=== PATIENT | male | born 1970 | race Hispanic/Latino ===

== ENCOUNTER 2021-09-23 17:17 | Inpatient (IN) | payer SELFPAY ==
[2021-09-23 21:19] LABS: Absolute Lymphocytes (CBC) 1.6 K/uL (0.7-4.9); Hematocrit 45.4 % (39.6-49.0); Lymphocytes % 16.1 % (15.3-44.8); MPV 8.7 fL (7.6-11.3); RBC Red Blood Cell Count 5.56 M/uL (4.33-5.43)
--- NOTE | 2021-09-23 21:25 | RAD REPORT ---
EXAM DESCRIPTION: RAD - Chest Single View - 09/23/2021 9:12 pm CLINICAL HISTORY: SOB Chest pain. COMPARISON: No comparisons FINDINGS: Portable technique limits examination quality. Mild interstitial pulmonary edema. The heart is mildly prominent size. No displaced fractures. IMPRESSION: Mild CHF.
[2021-09-23 21:33] LABS: Protime INR 1.12
[2021-09-23 21:35] LABS: Potassium 4.1 mmol/L (3.5-5.1)
[2021-09-23 21:56] LABS: Albumin 3.7 g/dL (3.4-5.0); Bilirubin Direct 0.2 mg/dL (0-0.2); Bilirubin Total 0.8 mg/dL (0.2-1.0); Magnesium 2.1 mg/dL (1.8-2.4); Protein, Total 7.6 g/dL (6.4-8.2)
[2021-09-23 22:14] LABS: Troponin High Sensitivity 288.2 pg/mL (<58.9)
[2021-09-23 22:52] LABS: Urine Blood Negative (Negative); Urine Glucose Negative (Negative); Urine Protein 3+ (Negative); Urine Specific Gravity >=1.030 (1.005-1.030); Urine pH 5.5 (5.0-7.0)
--- NOTE | 2021-09-23 23:00 | ER ---
Nurse's Notes [facility] Name: Kevin Devine Age: 51 yrs Sex: Male : 1970 Arrival Date: 09/23/2021 Time: 17:20 Bed 14 Private MD: COLUMBA WATSON Diagnosis: Unspecified combined systolic (congestive) and diastolic (congestive) heart failure Presentation: 09/23 18:28 Chief complaint: Patient states: Last 4 days woke up with labored breathing and trouble ww going back to sleep. Today the labored breathing has gotten worse with an increase in fatigue. Tried to mow his yard today and his legs felt weak and heavy. Coronavirus screen: Client denies travel out of the [place] in the last 14 days. Ebola Screen: Patient denies travel to an Ebola-affected area in the 21 days before illness onset. Initial Sepsis Screen: Does the patient meet any 2 criteria? No. Patient's initial sepsis screen is negative. Does the patient have a suspected source of infection? No. Patient's initial sepsis screen is negative. Risk Assessment: Do you want to hurt yourself or someone else? Patient reports no desire to harm self or others. Onset of symptoms is unknown. 18:28 Method Of Arrival: Ambulatory ww 18:28 Acuity: SUNDAY 3 ww Triage Assessment: 18:30 General: Appears comfortable, Behavior is cooperative. Pain: Denies pain. Neuro: Level ww of Consciousness is awake, alert, obeys commands, Oriented to person, place, time, situation. Respiratory: Airway is patent Respiratory effort is even, unlabored, Respiratory pattern is regular, symmetrical. Historical: - Allergies: 18:30 No Known Allergies; ww - Home Meds: 18:30 metformin 500 mg/5 mL Oral soln [Active]; Lisinopril Oral [Active]; ww - PMHx: 18:30 Diabetes mellitus; Hypertensive disorder; ww - Immunization history:: Adult Immunizations up to date. - Social history:: Smoking status: Patient denies any tobacco usage or history of. Screenin:55 Abuse screen: Denies threats or abuse. Nutritional screening: No deficits noted. bb Tuberculosis screening: No symptoms or risk factors identified. Fall Risk None identified. Assessment: 20:55 General: Appears in no apparent distress. Behavior is calm, cooperative. Pain: Denies bb pain. Neuro: Level of Consciousness is awake, alert, obeys commands, Oriented to person, place, time, situation. Cardiovascular: Capillary refill < 3 seconds Patient's skin is warm and dry. Rhythm is sinus bradycardia. Respiratory: Airway is patent Respiratory effort is even, unlabored, Respiratory pattern is regular. GI: No signs and/or symptoms were reported involving the gastrointestinal system. Derm: Skin is pink, warm \T\ dry. Musculoskeletal: Circulation, motion, and sensation intact. 23:16 Reassessment: Patient is alert, oriented x 3, equal unlabored respirations, skin bb warm/dry/pink. pt to CT scan via wheelchair accompanied by ergonomics technician. Vital Signs: 18:28 BP 140 / 115; Pulse 77; Resp 20; Temp 97.3; Pulse Ox 99% ; Weight 99.79 kg; Height 5 ww ft. 10 in. (177.80 cm); 21:15 BP 145 / 96; Pulse 85; Resp 16 S; Pulse Ox 95% on R/A; bb 18:28 Body Mass Index 31.57 (99.79 kg, 177.80 cm) ww ED Course: 17:20 Patient arrived in ED. am2 17:21 COLUMBA WATSON is Private Physician. am2 18:30 Triage completed. ww 18:30 Arm band placed on. ww 19:44 Alphonso Gage MD is Attending Physician. [facility] 20:40 Iliana Galan RN is Primary Nurse. bb 20:45 Initial lab(s) drawn, by md, sent to lab. Inserted saline lock: 20 gauge in right bb antecubital area, using aseptic technique. Blood collected. 20:55 Patient has correct armband on for positive identification. Call light in reach. Side bb rails up X 1. Client placed on continuous cardiac and pulse oximetry monitoring. NIBP monitoring applied. 21:14 XRAY Chest (1 view) In Process Unspecified. EDMS 21:43 Notified ED physician of a critical lab result(s). DDimer of [id number] Dr Gage notified. bb 22:59 Jf Wood MD is Hospitalizing Provider. [facility] 23:24 CT Chest For PE Angio In Process Unspecified. EDMS 09/24 07:27 Primary Nurse role handed off by Iliana Galan, [place] bd Administered Medications: 09/23 23:06 Drug: Lasix (furosemide) 20 mg Route: IVP; Site: right antecubital; 23:06 Drug: Aspirin Chewable Tablet 324 mg Route: PO; 09/24 01:08 Drug: Lovenox (enoxaparin) 1 mg/kg Route: Sub-Q; Site: abdomen; ke1 Outcome: 09/23 23:00 Decision to Hospitalize by Provider. [facility] 09/24 18:20 Admitted to Tele accompanied by tech, via wheelchair, room 222, Report called to [facility] 18:24 Patient left the ED. [facility] 18:24 Condition: stable [facility] 18:24 Instructed on the need for admit. Signatures: Dispatcher [employer] EDMS Kayy Johnson Brenda, Zulay Baptiste RN, Maurice, MD MD [facility] RN RN 6 Ting Rico RN RN ww Ebrottie, Kouassi, RN RN 1
--- NOTE | 2021-09-23 23:00 | EDPHYS ---
Physician Documentation [facility] Name: Kevin Devine Age: 51 yrs Sex: Male : 1970 Arrival Date: 09/23/2021 Time: 17:20 Bed 14 Private MD: COLUMBA WATSON ED Physician Alphonso Gage HPI: 09/23 20:40 This 51 yrs old Male presents to ER via Ambulatory with complaints of Blood mh7 Pressure Problem, General Weakness. 20:40 The patient has shortness of breath with light activity, that woke him/her from sleep. mh7 Onset: The symptoms/episode began/occurred 4 day(s) ago. Duration: The symptoms are intermittent, with no pattern. The patient's shortness of breath is aggravated by exertion, light activity, supine position, is alleviated by rest. Associated signs and symptoms: Pertinent negatives: chest pain, non-productive cough, productive cough, diaphoresis, dizziness, fever, hemoptysis, loss of consciousness, nausea, numbness in extremities, visual changes, vomiting. Severity of symptoms: At their worst the symptoms were moderate 1 day(s) ago, in the emergency department the symptoms have improved moderately. Historical: - Allergies: 18:30 No Known Allergies; ww - Home Meds: 18:30 metformin 500 mg/5 mL Oral soln [Active]; Lisinopril Oral [Active]; ww - PMHx: 18:30 Diabetes mellitus; Hypertensive disorder; ww - Immunization history:: Adult Immunizations up to date. - Social history:: Smoking status: Patient denies any tobacco usage or history of. ROS: 20:40 Constitutional: Negative for fever, chills, and weight loss, Eyes: Negative for injury, mh7 pain, redness, and discharge, ENT: Negative for injury, pain, and discharge, Neck: Negative for injury, pain, and swelling, Cardiovascular: Negative for chest pain, palpitations, and edema, Abdomen/GI: Negative for abdominal pain, nausea, vomiting, diarrhea, and constipation, Back: Negative for injury and pain, : Negative for injury, bleeding, discharge, and swelling, MS/Extremity: Negative for injury and deformity, Skin: Negative for injury, rash, and discoloration, Psych: Negative for depression, anxiety, suicide ideation, homicidal ideation, and hallucinations, Allergy/Immunology: Negative for hives, rash, and allergies, Endocrine: Negative for neck swelling, polydipsia, polyuria, polyphagia, and marked weight changes, Hematologic/Lymphatic: Negative for swollen nodes, abnormal bleeding, and unusual bruising. Exam: 20:40 Constitutional: This is a well developed, well nourished patient who is awake, alert, mh7 and in no acute distress. Head/Face: Normocephalic, atraumatic. Eyes: Pupils equal round and reactive to light, extra-ocular motions intact. Lids and lashes normal. Conjunctiva and sclera are non-icteric and not injected. Cornea within normal limits. Periorbital areas with no swelling, redness, or edema. Neck: Trachea midline, no thyromegaly or masses palpated, and no cervical lymphadenopathy. Supple, full range of motion without nuchal rigidity, or vertebral point tenderness. No Meningismus. Chest/axilla: Normal chest wall appearance and motion. Nontender with no deformity. No lesions are appreciated. Cardiovascular: Regular rate and rhythm with a normal S1 and S2. No gallops, murmurs, or rubs. Normal PMI, no JVD. No pulse deficits. 20:40 Abdomen/GI: Soft, non-tender, with normal bowel sounds. No distension or tympany. No guarding or rebound. No evidence of tenderness throughout. Back: No spinal tenderness. No costovertebral tenderness. Full range of motion. Skin: Warm, dry with normal turgor. Normal color with no rashes, no lesions, and no evidence of cellulitis. MS/ Extremity: Pulses equal, no cyanosis. Neurovascular intact. Full, normal range of motion. Neuro: Awake and alert, GCS 15, oriented to person, place, time, and situation. Cranial nerves II-XII grossly intact. Motor strength 5/5 in all extremities. Sensory grossly intact. Cerebellar exam normal. Normal gait. Psych: Awake, alert, with orientation to person, place and time. Behavior, mood, and affect are within normal limits. 20:40 Respiratory: the patient does not display signs of respiratory distress, Respirations: normal, Breath sounds: rhonchi, that are mild, are scattered, Respiratory rate: 16 Vital Signs: 18:28 BP 140 / 115; Pulse 77; Resp 20; Temp 97.3; Pulse Ox 99% ; Weight 99.79 kg; Height 5 ww ft. 10 in. (177.80 cm); 21:15 BP 145 / 96; Pulse 85; Resp 16 S; Pulse Ox 95% on R/A; bb 18:28 Body Mass Index 31.57 (99.79 kg, 177.80 cm) ww MDM: 22:58 Differential diagnosis: Anemia Anxiety Reaction asthma, Bronchitis CHF exacerbation, 7 Chronic Obstructive Pulmonary Disease Myocardial Infarction pneumonia, Pneumothorax Psychogenic pulmonary edema, reactive airway disease. Data reviewed: vital signs, nurses notes, lab test result(s), cardiac enzymes, CBC, electrolytes, EKG, radiologic studies, plain films. Data interpreted: Pulse oximetry: on room air is 95 %. Interpretation: normal. Counseling: I had a detailed discussion with the patient and/or guardian regarding: the historical points, exam findings, and any diagnostic results supporting the discharge/admit diagnosis, the presence of at least one elevated blood pressure reading (>120/80) during this emergency department visit, lab results, radiology results, the need for further work-up and treatment in the hospital. Response to treatment: the patient's symptoms have mildly improved after treatment. 23:00 Patient medically screened. [facility] 09/23 20:35 Order name: Basic Metabolic Panel; Complete Time: 22:18 [facility] 09/23 20:35 Order name: CBC with Diff; Complete Time: 22:00 [facility] 09/23 20:35 Order name: LFT's; Complete Time: 22:18 [facility] 09/23 20:35 Order name: Magnesium; Complete Time: 22:18 [facility] 09/23 20:35 Order name: NT PRO-BNP; Complete Time: 22:18 [facility] 09/23 20:35 Order name: PT-INR; Complete Time: 22:00 [facility] 09/23 20:35 Order name: Troponin HS; Complete Time: 22:18 [facility] 09/23 20:36 Order name: COVID-19 SARS RT PCR (Document "Date of Onset" if Symptomatic); Complete [facility] Time: 22:53 09/23 20:36 Order name: Influenza Screen (a \\T\\ B); Complete Time: 22:18 [facility] 09/23 21:12 Order name: D-Dimer; Complete Time: 22:00 EDNE 09/23 22:52 Order name: Urine Dipstick-Ancillary; Complete Time: 22:58 EDMS 09/24 00:48 Order name: CKMB Creatine Kinase MB EDMS 09/24 00:48 Order name: Creatine Phosphokinase EDMS 09/24 00:48 Order name: Urinalysis EDMS 09/24 00:48 Order name: Basic Metabolic Panel EDMS 09/24 00:48 Order name: Basic Metabolic Panel EDMS 09/24 00:48 Order name: Basic Metabolic Panel EDMS 09/24 00:48 Order name: CBC with Automated Diff EDMS 09/24 00:48 Order name: CBC with Automated Diff EDMS 09/24 00:48 Order name: CBC with Automated Diff EDMS 09/24 00:48 Order name: Lipid Profile EDMS 09/24 00:48 Order name: Lipid Profile EDMS 09/24 00:48 Order name: Magnesium EDMS 09/24 00:48 Order name: Magnesium EDMS 09/24 00:48 Order name: Phosphorus EDMS 09/24 00:48 Order name: Phosphorus EDMS 09/24 00:48 Order name: Thyroid Stimulating Hormone EDMS 09/24 00:48 Order name: Thyroid Stimulating Hormone EDMS 09/24 00:48 Order name: Troponin High Sensitivity EDMS 09/23 20:35 Order name: XRAY Chest (1 view); Complete Time: 22:00 [facility] 09/23 20:35 Order name: EKG; Complete Time: 20:36 [facility] 09/23 20:35 Order name: Cardiac monitoring; Complete Time: 21:28 [facility] 09/23 20:35 Order name: EKG - Nurse/Tech; Complete Time: 21:32 [facility] 09/23 20:35 Order name: IV Saline Lock; Complete Time: 21:28 [facility] 09/23 20:35 Order name: Labs collected and sent; Complete Time: 21:28 [facility] 09/23 20:35 Order name: O2 Per Protocol; Complete Time: 21:28 [facility] 09/23 20:35 Order name: O2 Sat Monitoring; Complete Time: 21:28 [facility] 09/23 20:35 Order name: Urine Dipstick-Ancillary (obtain specimen); Complete Time: 22:52 [facility] 09/23 22:32 Order name: CT Chest For PE Angio [facility] 09/24 00:48 Order name: Heart Healthy EDMS 09/24 00:48 Order name: Echo with Doppler EDMS 09/24 00:48 Order name: Troponin High Sensitivity EDMS 09/24 00:48 Order name: Troponin High Sensitivity EDMS 09/24 05:38 Order name: LDL, Direct EDMS 09/24 07:43 Order name: Glucose, Ancillary Testing EDMS 09/24 12:22 Order name: Glucose, Ancillary Testing EDMS 09/24 17:21 Order name: Glucose, Ancillary Testing EDMS Administered Medications: 23:06 Drug: Lasix (furosemide) 20 mg Route: IVP; Site: right antecubital; 23:06 Drug: Aspirin Chewable Tablet 324 mg Route: PO; bb 09/24 01:08 Drug: Lovenox (enoxaparin) 1 mg/kg Route: Sub-Q; Site: abdomen; [facility] Disposition Summary: 09/23/21 23:00 Hospitalization Ordered Hospitalization Status: Inpatient Admission [facility] Provider: Jf Wood Condition: Stable [facility] Problem: new [facility] Symptoms: have improved [facility] Bed/Room Type: Standard [facility] Location: Telemetry/MedSurg (Inpatient)(09/24/21 16:57) Room Assignment: 222(09/24/21 16:57) Diagnosis - Unspecified combined systolic (congestive) and diastolic (congestive) heart failure [facility] Forms: - Medication Reconciliation Form [facility] - SBAR form [facility] Signatures: Dispatcher [employer] Nava Ricketts RN RN dw Ballard, Brenda, RN RN bb Garcia, Cindy, RN RN cg Holmes, Maurice, MD MD mh7 Wood, Whitney, RN RN ww Ebrottie, Kouassi, RN RN ke1 Cheyanne Dai PA PA sb3 Corrections: (The following items were deleted from the chart) 09/23 21:12 20:38 D-DIMER+COAG.LAB.BRZ ordered. EDNE EDNE 09/24 00:16 09/23 23:00 Telemetry/MedSurg (Inpatient) [facility] cg 09/24 00:16 09/23 23:00 [facility] cg 09/24 16:57 00:16 [facility] ER HOLD cg dw 16:57 00:16 ERHOLD- cg dw
[2021-09-23] MEDS ORDERED: ASPIRIN 81 MG CHEWABLE TABLET ONE (23:11)
[2021-09-23] MEDS ORDERED: FUROSEMIDE 20 MG/ 2ML VIAL ONE (23:11)
[2021-09-24] MEDS ORDERED: ACETAMINOPHEN 500 MG TAB PO PRN (00:45)
[2021-09-24] MEDS ORDERED: ONDANSETRON 4 MG/2 ML VIAL IV PRN (00:45)
--- NOTE | 2021-09-24 01:05 | P.HP ---
Certification for Inpatient Patient admitted to: Inpatient With expected LOS: <2 Midnights Patient will require the following post-hospital care: None Practitioner: I am a practitioner with admitting privileges, knowledge of patient current condition, hospital course, and medical plan of care. Services: Services provided to patient in accordance with Admission requirements found in Title 42 Section 412.3 of the Code of Federal Regulations Patient History Date of Service: 09/24/21 Reason for admission: Acute CHF History of Present Illness: Patient is a 51-year-old male with PMH of type 2 diabetes [id number] and hypertension who presented to the ED with complaints of 4 days of worsening shortness of breath, orthopnea, and fatigue. 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 Labs in the ED significant for a BNP of 2469, troponin 288, D-dimer 771, COVID+. EKG without ST changes, CT chest angio negative for PE although did show small bilateral trace pleural effusions and mild adjacent atelectasis in the lower lobes. He was given 324 of aspirin, 20 of Lasix, and therapeutic dose Lovenox. Patient does have a family history of [place] and heart disease. He denies chest pain or covid related symptoms. States his SHOB has improved here and is worsened with exertion. Will admit patient for further evaluation and treatment. Allergies No Known Allergies Allergy (Unverified 09/24/21 00:45) Home medications list reviewed: Yes - Past Medical/Surgical History Diabetic: Yes -: Type 2 Diabetes Non-Insulin Dependent -: Hypertension Past Surgical History: Patient denies surgical history Psychosocial/ Personal History: Patient lives at home with his family. - Family History Father -: Heart disease, Hypertension - Social History Smoking Status: Never smoker Alcohol use: No CD- Drugs: No Caffeine use: Yes Place of Residence: Home Review of Systems General: Weakness Respiratory: Shortness of Breath, SOB with Excertion Cardiovascular: Orthopnea Physical Examination - Physical Exam General: Alert, In no apparent distress HEENT: Atraumatic, PERRLA, Mucous membr. moist/pink, EOMI, Sclerae nonicteric Neck: Supple, 2+ carotid pulse no bruit, No LAD, Without JVD or thyroid abnormality Respiratory: Clear to auscultation bilaterally, Normal air movement Cardiovascular: No edema, Regular rate/rhythm, Normal S1 S2 Gastrointestinal: Normal bowel sounds, No tenderness Musculoskeletal: No tenderness Integumentary: No rashes Neurological: Normal speech, Normal strength at 5/5 x4 extr, Normal tone, Normal affect - Studies Laboratory Data (last 24 hrs) 09/23/21 20:50: PT 12.3, INR 1.12 09/23/21 20:50: WBC 9.6, Hgb 14.8, Hct 45.4, Plt Count 213 09/23/21 20:50: Sodium 138, Potassium 4.1, BUN 26 H, Creatinine 1.26, Glucose 167 H, Magnesium 2.1, Total Bilirubin 0.8, AST 38 H, ALT 54, Alkaline Phosphatase 77 Microbiology Data (last 24 hrs): 09/23/21 21:19 Nasopharnyx Influenza Type A Antigen Screen - Final 09/23/21 21:19 Nasopharnyx Influenza Type B Antigen Screen - Final Assessment and Plan - Problems (Diagnosis) (1) Acute CHF Current Visit: Yes Status: Acute Qualifiers: Heart failure type: unspecified Qualified Code(s): I50.9 - Heart failure, unspecified (2) Hypertension Current Visit: Yes Status: Chronic Qualifiers: Hypertension type: primary hypertension Qualified Code(s): I10 - Essential (primary) hypertension (3) Type 2 diabetes mellitus Current Visit: Yes Status: Chronic Qualifiers: Diabetes mellitus correction insulin use: without correction use Diabetes mellitus complication status: without complication Qualified Code(s): E11.9 - Type 2 diabetes mellitus without complications (4) Elevated d-dimer Current Visit: Yes Status: Acute (5) Elevated troponin Current Visit: Yes Status: Acute (6) Orthopnea Current Visit: Yes Status: Acute - Plan -cardiology consulted. echo ordered for AM -BNP and trop elevated. Will trend trop q6hx2 and check CPK and CKMB. -Ddimer elevated. CT angio chest negative for PE. could be secondary to covid+. no acute concern for DVT -therapeutic dose lovenox given in ED. Will continue daily -lipid panel ordered for AM -aspirin and atorvastatin ordered daily -reconcile and continue home medications -monitor on telemetry Discharge Plan: Home Plan to discharge in: 48 Hours - Advance Directives Does patient have a Living Will: No Does patient have a Durable POA for Healthcare: No - Code Status/Comfort Care Code Status Assessed: Yes (Full) Critical Care: No Time Spent Managing Pts Care (In Minutes): 50
[2021-09-24] MEDS ORDERED: ENOXAPARIN 100 MG/ML SYR SQ ONE (01:06)
[2021-09-24] MEDS: ENOXAPARIN 100 MG/ML SYR SQ SCH ×2 (01:10→22:05)
[2021-09-24 01:20] VITALS: BMI 31.5
[2021-09-24 01:55] LABS: CKMB Creatine Kinase MB 3.5 ng/mL (1.0-3.6)
[2021-09-24 04:56] LABS: Absolute Lymphocytes (CBC) 2.2 K/uL (0.7-4.9); Hematocrit 38.3 % (39.6-49.0); Lymphocytes % 25.3 % (15.3-44.8); MPV 8.6 fL (7.6-11.3); RBC Red Blood Cell Count 4.77 M/uL (4.33-5.43)
[2021-09-24 05:15] LABS: BUN Blood Urea Nitrogen 31 mg/dL (7-18); Bicarbonate 29 mmol/L (21-32); Glomerular Filtration Rate 67 ml/min (=/>90); Glucose Level 254 mg/dL (74-106); HDL Cholesterol 26 mg/dL (40-60); Phosphorus 4.3 mg/dL (2.5-4.9); Potassium 3.6 mmol/L (3.5-5.1); Sodium Level 140 mmol/L (136-145)
[2021-09-24 05:25] LABS: Troponin High Sensitivity 232.3 pg/mL (<58.9)
[2021-09-24 05:37] LABS: LDL, Direct 88 mg/dL (100-129)
[2021-09-24] MEDS: INSULIN -REGULAR HUMAN 50 UNIT/0.5 ML ML SQ SCH ×4 (07:30→22:05)
[2021-09-24] MEDS: ASPIRIN EC 81 MG TAB PO SCH (09:00)
[2021-09-24] MEDS ORDERED: ASPIRIN 81 MG CHEWABLE TABLET ONE (09:31)
[2021-09-24] MEDS ORDERED: INSULIN -REGULAR HUMAN 50 UNIT/0.5 ML ML ONE (12:19)
--- NOTE | 2021-09-24 12:42 | RAD REPORT ---
EXAM DESCRIPTION: CT - Chest For Pe Angio - 09/24/2021 6:20 am CLINICAL HISTORY: Shortness of breath. COMPARISON: None. TECHNIQUE: CTA of the chest was performed following intravenous administration of iodinated contrast . Axial soft tissue and lung window, and coronal and sagittal soft tissue window reconstructions were created and sent to PACS. 3D postprocessing was performed on an independent workstation, with images sent to PACS for subsequen t review. This exam was performed according to our departmental dose-optimization program, which includes autom ated exposure control, adjustment of the mA and/or kV according to patient size and/or use of iterati ve reconstruction technique. FINDINGS: Vascular: The pulmonary arteries are well-opacified to the segmental level. No CT evidence of acute pulmonary thromboembolism. No evidence of aortic aneurysm. Trace reflux of contrast into th e hepatic veins. Lungs and pleura: No pulmonary consolidation. Small right-sided and trace left-sided pleural effusion s. Mild adjacent atelectasis in the lower lobes. Slightly nodular appearance along the right inferior pleura is favored related to pleural folds rather than nodules, measuring up to 1.7 cm on axial seri es 402 image 117. No pneumothorax. Mild diffuse bronchial wall thickening. Mediastinum and neck: Mild mediastinal lymphadenopathy. Mildly enlarged left thyroid lobe, containing a 1.9 cm nodule. Cardiac: Mild cardiomegaly. No pericardial effusion. Abdomen: No significant upper abdominal abnormality identified. Musculoskeletal: No concerning osseous abnormality. IMPRESSION: 1. No CTA evidence of acute pulmonary thromboembolism. 2. Small right-sided and trace left-sided pleural effusions. Mild adjacent atelectasis in the lower lobes. 3. Mild diffuse bronchial wall thickening. No pulmonary consolidation identified. 4. Slightly nodular appearance along the right inferior pleura is favored related to pleural folds rather than nodules. However, consider a non-contrast Chest CT at 3 months according to Fleischner So ciety guidelines. 5. Mild mediastinal lymphadenopathy. 6. Left thyroid lobe 1.9 cm nodule. Recommend correlation with nonemergent thyroid ultrasound accor ding to [place] [employer] guidelines. Electronically signed by: Leela Parker MD 09/23/2021 11:53 PM CDT Due to temporary technical issues with the PACS/Fluency reporting system, reports are being signed by the in house radiologist without review as a courtesy to ensure prompt reporting. The interpreting r adiologist is fully responsible for the content of the report.
[2021-09-24] MEDS ORDERED: ATORVASTATIN 40 MG TAB PO SCH (21:00)
[2021-09-25 05:44] LABS: Absolute Lymphocytes (CBC) 2.2 K/uL (0.7-4.9); Hematocrit 41.9 % (39.6-49.0); Lymphocytes % 27.4 % (15.3-44.8); MPV 8.5 fL (7.6-11.3); RBC Red Blood Cell Count 5.12 M/uL (4.33-5.43)
[2021-09-25 05:58] LABS: Potassium 3.6 mmol/L (3.5-5.1)
[2021-09-25] MEDS: INSULIN -REGULAR HUMAN 50 UNIT/0.5 ML ML SQ SCH ×2 (07:30→13:03)
--- NOTE | 2021-09-25 07:42 | EKG ---
Test Date: 2021-09-23 Test Time: 23:18:12 Plan Examiner: CAITLIN MEASUREMENT RESULTS: Intervals: Rate: 84 OH: 180 QRSD: 124 QT: 428 QTc: 505 [place]: P: 51 OH: 180 QRS: 97 T: -35 INTERPRETIVE STATEMENTS: Sinus rhythm with frequent premature ventricular complexes Rightward axis Cannot rule out Inferior infarct, age undetermined Possible Anterior infarct, age undetermined Abnormal ECG Compared to ECG 09/23/2021 21:23:53 Right-axis deviation now present Myocardial infarct finding still present Electronically Signed On 09-25-21 07:37:31 CDT by Rupesh Cheng
--- NOTE | 2021-09-25 07:42 | EKG ---
Test Date: 2021-09-23 Test Time: 21:23:53 Urology Physician Assistant: JESSICA MEASUREMENT RESULTS: Intervals: Rate: 77 NC: 176 QRSD: 122 QT: 446 QTc: 504 [place]: P: 47 NC: 176 QRS: 74 T: 60 INTERPRETIVE STATEMENTS: Sinus rhythm with frequent premature ventricular complexes in a pattern of bigeminy Possible Left atrial enlargement Possible Inferior infarct, age undetermined Anterior infarct, age undetermined Abnormal ECG No previous ECG available for comparison Electronically Signed On 09-25-21 07:37:35 CDT by Rupesh Cheng
--- NOTE | 2021-09-25 08:34 | ECHO ---
HEIGHT: 5 ft 10 in WEIGHT: 219 lb 15.989 oz DATE OF STUDY: 09/24/[address]: Cheyanne Dai 2-DIMENSIONAL: YES M.MODE: YES DOPPLER: YES COLOR FLOW: YES TDS: NO PORTABLE: YES DEFINITY: NO BUBBLE STUDY: NO DIAGNOSIS: CONGESTIVE HEART FAILURE CARDIAC HISTORY: CATHERIZATION: SURGERY: PROSTHETIC VALVE: PACEMAKER: MEASUREMENTS (cm) DIASTOLIC (NORMALS) SYSTOLIC (NORMALS) IVSd 1.4 (0.6-1.2) LA Diam 4.2 (1.9-4.0) LVEF 25-30% LVIDd 5.3 (3.5-5.7) LVIDs 4.5 (2.0-3.5) %FS 15% LVPWd 1.3 (0.6-1.2) Ao Diam 3.1 (2.0-3.7) 2 DIMENSIONAL ASSESSMENT: RIGHT ATRIUM: NORMAL LEFT ATRIUM: LEFT ATRIAL ENLARGEMENT RIGHT VENTRICLE: NORMAL LEFT VENTRICLE: LEFT VENTRICULAR TRICUSPID VALVE: NORMAL MITRAL VALVE: NORMAL PULMONIC VALVE: NORMAL AORTIC VALVE: NORMAL PERICARDIAL EFFUSION: NONE AORTIC ROOT: NORMAL LEFT VENTRICULAR WALL MOTION: SEVERE GLOBAL HYPOKINESIS. DOPPLER/COLOR FLOW: MILD MITRAL AND TRICUSPID REGURGITATION - NORMAL RIGHT VENTRICUALR SYSTOLIC PRESSURE. COMMENTS: SEVERE GLOBAL HYPOKINESIS. EJECTION FRACTION 25-30%. LEFT VENTRICULAR HYPERTROPHY. LEFT ATRIAL ENLARGEMENT. TECHNOLOGIST: RICHARD HOYOS
[2021-09-25 09:01] VITALS: TEMP 97.8
[2021-09-25 10:13] VITALS: O2SAT 93
[2021-09-25] MEDS: ASPIRIN EC 81 MG TAB PO SCH (10:32)
[2021-09-25] MEDS: ENOXAPARIN 100 MG/ML SYR SQ SCH (10:32)
[2021-09-25 16:54] VITALS: BP 150/90
--- NOTE | 2021-09-28 14:13 | CON ---
Date of Consultation: 09/24/2021 The patient was admitted on 09/23/2021. I saw the patient on 09/24/2021. Reason For Consultation: New onset congestive heart failure. Additional Admitting Physician: Dr. Burt Fish. History Of Present Illness: Mr. Devine is 51 years old. Has a history of diabetes. No previous car diac history otherwise. He sees Dr. Lama in [place]. Came in with new onset congestive heart fail ure, PND, orthopnea, pedal edema, shortness of breath. Denied any nausea, vomiting, diaphoresis, pal pitation, or syncope. Denied any fever or chills. Denied any chest pain. Past Medical History: Includes diabetes. Allergies: NONE. Review of Systems: Negative. Social History: Negative. Family History: Positive for history of CABG and a pacemaker in his father. He denied tobacco use. Medications: At home include lisinopril, metformin, and Actos. Physical Examination: Vital Signs: Stable, afebrile. HEENT: Negative. Neck: Supple with no bruit. Chest: Clear to auscultation and percussion. Cardiac: Revealed a regular rhythm and rate with S3 gallops. No murmurs or rubs. Abdomen: Benign. Extremities: Revealed no clubbing, cyanosis, or edema. Diagnostic Data: Showed a glucose of 203. His creatinine was 1.30. His D-dimer was 771. His tropo michael was 232 and 254. He was positive for COVID. Impression And Plan: 1.New onset congestive heart failure. Echocardiogram is pending. He needs to be on IV Lasix. 2.Diabetes, on insulin. 3.Dyslipidemia, on Lipitor. 4.COVID positive. Needs to be diuresed. We will see what the echocardiogram shows. Continue diabe tic treatment, Lipitor, Lovenox, and insulin. I will continue to follow him. NB/MODL Voice ID: [id number] Report ID: [id number]
--- NOTE | 2021-09-28 14:15 | PN ---
Date of Progress Note: 09/25/2021 Mr. Devine was admitted to Dr. Gage with new onset congestive heart failure, uncontrolled diabetes, hypertension, dyslipidemia, elevated troponin, new onset congestive heart failure by x-ray. Echocar diogram showed an ejection fraction of 25-30 percent. Mr. Devine is feeling better. He can probably go home. He needs to be on aspirin, Lipitor, diabetic medication. He needs to be on SUE inhibitor. He needs to be on carvedilol. He needs to be on Lasix and maybe low-dose Aldactone and I will see him in the office very soon. He will need a heart catheterization maybe in about 2 weeks after his C OVID hopefully resolves. He will need to have serial echoes. We need to consider defibrillator pace maker down the road. We should also consider Entresto down the road. ALONSO/SHAQUILLE Voice ID: [id number] Report ID: [id number]
== END 2021-09-25 14:15 | disposition home or self-care (01) | DRG 291 ==
LOC: ER 17:17 → ERHOLD 09-24 00:38 → 2ND 09-24 17:39
PROVIDERS: ADMIT Hospitalist; ATTEND Hospitalist
DX: I11.0 Hypertensive heart disease with heart failure (principal); U07.1 COVID-19; I50.9 Heart failure, unspecified; R77.8 Other specified abnormalities of plasma proteins; E78.5 Hyperlipidemia, unspecified; E11.65 Type 2 diabetes mellitus with hyperglycemia
CPT/HCPCS: 36415; 71045; 71275; 80048; 80061; 80076; 81003; 82550; 82553; 82947; 83735; 83880; 84100; 84443; 84484; 85025; 85379; 85610; 87804; 93005; 93306; 96372; 96374; 99285; J1650; J1815; J1940; Q9967; U0003